=== PATIENT | female | born 1950 | race Caucasian/White ===

== ENCOUNTER 2020-01-09 13:46 | Emergency (ER) | payer MEDICARE, OTHER, SELFPAY ==
[2020-01-09 14:04] VITALS: BP 161/74; PULSE 87; RESP 20; TEMP 36.6; O2SAT 100
--- NOTE | 2020-01-09 14:06 | ECG_ITS ---
Measurements Intervals [place] Rate: 88 P: 128 FL: 130 QRS: 195 QRSD: 108 T: 84 QT: 400 QTc: 486 Interpretive Statements SINUS RHYTHM VENTRICULAR BIGEMINY LIMB LEAD REVERSAL LEFT ATRIAL ENLARGEMENT INCOMPLETE RIGHT BUNDLE BRANCH BLOCK BASELINE ARTIFACT- I, II, III, AVR, AVL, AVF ABNORMAL ECG Electronically Signed On 01-10-2020 7:07:26 CDT by Duke Kyle D.O.
--- NOTE | 2020-01-09 14:39 | PC.NURSE ---
Patient son in law is her credit consultant and he spoke with Sadia KEATING and requesting the EKG results after permission given by patient. He was open to the clinical recommendations of Sadia KEATING but ultimately it it is up to the patient if she seek a higher level of care. Recommendation per Sadia KEATING was for patient to go to the ER. Patient is discussing with son in law at the present
--- NOTE | 2020-01-09 14:46 | ED.GENADULT ---
HPI - General Adult General Chief complaint: Shortness of Breath/Dyspnea Stated complaint: sob/pos irregular heartbeat Time Seen by Provider: 01/09/20 14:04 Source: patient and RN notes reviewed Mode of arrival: ambulatory Limitations: no limitations History of Present Illness HPI narrative: 69-year-old female presents with complaints of shortness of breath and irregular heartbeat for 1 day. No treatment. Binta says heart rate was low and irregular yesterday and this morning. History of CABG, CAD, AAA, Asthma, HTN). No exacerbating factors per Binta. Binta says her daughter and son-in-law are physicians and even though her instructed her to seek ED care they advised her to seek Urgent Care evaluation. No family history of sudden . Denies chest pain and diaphoresis. Denies nausea or vomiting. Leg swelling, Binta says she did not take water pill (40mg of Lasix) because she did not want to stop to use bathroom today. Denies long car rides, hisorty of DVT, PE, LE edema, or dizziness. The patient reports she have not been diagnosed with COVID-19. The patient reports she is not waiting for the results of a COVID-19 lab test. The patient reports she do not have fever, chills, weakness, or fatigue. The patient reports she do not have a new or worsening cough or shortness of breath. The patient reports she do not have any rhinorrhea, congestion, sore throat, abdominal pain, and diarrhea. Tolerating po intake well. Denies recent traveling. Denies concerns for COVID-19 or exposures been home with limited outdoor exposure except for essential household needs and return home. At this time, patient is not suspected of having COVID-19. Some parts of this dictation were generated by voice recognition software and may contain typographical and/or grammatical inaccuracies. Related Data Home Medications Medication Instructions Recorded Confirmed albuterol sulfate 1 inh INHALATION 4-6XD 01/09/20 01/09/20 albuterol sulfate 1.25 mg 4-6XD 01/09/20 01/09/20 alirocumab [Praluent Pen] 75 mg SUBCUT ONCE 01/09/20 01/09/20 diltiazem HCl [Cartia XT] 120 mg PO BID 01/09/20 01/09/20 furosemide 40 mg DAILY 01/09/20 01/09/20 levothyroxine [Synthroid] 75 mcg DAILY 01/09/20 01/09/20 lisinopril 20 mg DAILY 01/09/20 01/09/20 Allergies Allergy/AdvReac Type Severity Reaction Status Date / Time Beta-Blockers Allergy Unknown Verified 05/30/12 08:49 (Beta-Adrenergic Bloc No Known Allergies Allergy Unknown Verified 02/26/16 16:53 Review of Systems Review of Systems: Narrative: CONSTITUTIONAL: Denies fever, chills, sweats. EYES: Denies visual changes, redness, discharge. ENT: Denies rhinorrhea, congestion, sore throat, otalgia. CARDIOVASCULAR: Complains of irregular heart rate. Denies palpitations, edema, diaphoresis, chest pain. RESPIRATORY:Complains of dyspnea. Denies wheezing, cough. GASTROINTESTINAL: Denies abdominal pain, nausea, vomiting, diarrhea. GENITOURINARY: Denies dysuria, hematuria, abnormal discharge. SKIN: Denies rash or itching. MUSCULOSKELETAL: Denies acute back pain or myalgia. NEUROLOGIC: Denies numbness or focal weakness. PSYCHIATRIC: Denies anxiety or depression. All systems reviewed & are unremarkable except as noted in HPI and below. [facility] Past Medical History Medical History (Updated 01/10/20 @ 00:27 by BREANA Clemons) AAA (abdominal aortic aneurysm) Asthma Heart disease Hypertension Hypothyroidism Varicose vein of leg Surgical History Surgical History (Updated 01/10/20 @ 00:27 by BREANA Clemons) History of AAA (abdominal aortic aneurysm) repair History of hysterectomy History of varicose vein ligation and stripping Hx of CABG Family History Family History Mother Family history of cataracts Family history of arthritis Family history of malignant neoplasm of breast in first degree relative Grandparent Family history o
--- NOTE | 2020-01-09 14:55 | PC.NURSE ---
patient signed refusal of transfer
== END 2020-01-09 15:04 | disposition home or self-care (01) ==
PROVIDERS: Emergency Provider Nurse Practitioner Family; PCP Family Medicine Sports Medicine
DX: I49.9 Cardiac arrhythmia, unspecified (principal); Z87.891 Personal history of nicotine dependence; J45.909 Unspecified asthma, uncomplicated; I10 Essential (primary) hypertension; E03.9 Hypothyroidism, unspecified; Z95.1 Presence of aortocoronary bypass graft
CPT/HCPCS: 93005; 99203; G0463